=== PATIENT | male | born 1965 | race Caucasian/White ===

== ENCOUNTER 2017-05-20 21:16 | Emergency (ER) | payer OTHER ==
[~2017-05-20] VITALS: Ht 185.4 cm; Wt 93.0 kg
[2017-05-20 21:39] VITALS: Ht 185.4 cm; Wt 93.0 kg
[2017-05-21 00:17] VITALS: BP 137/81
== END 2017-05-21 04:38 | disposition home or self-care (01) ==
LOC: ED 21:16
DX: F10.129 Alcohol abuse with intoxication, unspecified (principal)
CPT/HCPCS: J2250